=== PATIENT | female | born 1995 | race African-American/Black ===

== ENCOUNTER 2016-05-29 15:40 | Emergency (ER) | payer BC ==
[~2016-05-29 15:40] MED LIST: ACETAMINOPHEN PO; IBUPROFEN PO; NO MEDICATIONS; ORTHO NOVUM PO; PRENATAL1 TA1 PO; SUDAFED PO; ZYRTEC-D TABLE1 EACH PO
[2016-05-29 15:44] LABS: INFLUENZA A NEG (NEG); INFLUENZA B NEG (NEG)
== END 2016-05-29 16:21 | disposition home or self-care (01) ==
LOC: SED 15:40
PROVIDERS: Nurse Practitioner
DX: B34.9 Viral infection, unspecified (principal)
CPT/HCPCS: 87651; 87804; 87880; 99282